=== PATIENT | male | born 1990 | race Caucasian/White ===

== ENCOUNTER 2021-01-13 07:55 | Emergency (ER) | payer MEDICAID ==
[~2021-01-13] VITALS: Ht 172.7 cm; Wt 816.9 kg
[2021-01-13 07:55] VITALS: BP_SYST 133
--- NOTE | 2021-01-13 07:55 | NUR ---
Pt to hallway 1 for evaluation.
--- NOTE | 2021-01-13 08:00 | NUR ---
Pt AAO and was BIB law [employer] for medical clearance. Pt requires health examination prior to booking. Pt reports that "his heart hurts." Pt also has stitches in right eye area that need to be evaluated. Pt v/s stable.
--- NOTE | 2021-01-13 08:10 | NUR ---
Dr. Vail at bedside to assess.
--- NOTE | 2021-01-13 08:19 | NUR ---
EKG completed. Result given to Dr. Vail for interpretation.
--- NOTE | 2021-01-13 08:33 | NUR ---
Patient given written and verbal discharge instructions and verbalizes understanding. Dr. Genna CARPENTER MD discussed with patient the results and treatment provided. Patient in stable condition. ID arm band removed. Patient educated on pain management and to follow up with PMD. Pain Scale 0/10. Opportunity for questions provided and answered.
== END 2021-01-13 08:33 ==
LOC: SED 07:55
DX: R07.89 Other chest pain (principal)
CPT/HCPCS: 93005; 99283